=== PATIENT | male | born 1995 | race African-American/Black ===

== ENCOUNTER 2016-10-01 18:14 | Emergency (ER) | payer OTHER ==
[2016-10-01] MEDS ORDERED: AZITHROMYCIN 250 MG TABLET PO STA (18:33)
[2016-10-01] MEDS ORDERED: cefTRIAXone 1 GM VIAL IM STA (18:33)
[2016-10-01] MEDS ORDERED: cefTRIAXone 1 GM VIAL ONE (18:35)
[2016-10-01] MEDS ORDERED: AZITHROMYCIN 250 MG TABLET PO ONE (18:35)
[2016-10-01] MEDS ORDERED: LIDOCAINE 1% 2 ML VIAL ONE (18:36)
== END 2016-10-01 19:45 | disposition home or self-care (01) ==
DX: Z20.2 Contact with and (suspected) exposure to infections with a predominantly sexual mode of transmission (principal); R03.0 Elevated blood-pressure reading, without diagnosis of hypertension; F17.200 Nicotine dependence, unspecified, uncomplicated
CPT/HCPCS: 81003; 87491; 87591; 96372; 99283; A9270